=== PATIENT | male | born 2000 | race Caucasian/White ===

== ENCOUNTER 2021-12-18 04:35 | Day surgery (SDC) | payer OTHER ==
[2021-12-17 09:54] VITALS: BMI 20.9
[2021-12-18] MEDS ORDERED: MIDAZOLAM HCL 2 MG/2 ML SINGLE DOSE VIAL ONE ×2 (09:30)
[2021-12-18] MEDS ORDERED: PROPOFOL 20 ML ONE (09:30)
[2021-12-18] MEDS ORDERED: BACITRACIN 15 GM TUBE TOPICAL OINTMENT ONE (09:34)
[2021-12-18] MEDS ORDERED: DEXAMETHASONE SOD PHOSPHATE 4 MG/1 ML VIAL ONE (09:49)
[2021-12-18] MEDS ORDERED: ceFAZolin SODIUM 1 GM VIAL ONE (09:49)
[2021-12-18] MEDS ORDERED: ceFAZolin SODIUM 1 GM VIAL IVPB ONE (09:55)
[2021-12-18] MEDS ORDERED: BACITRACIN 15 GM TUBE TOPICAL OINTMENT TP ONE (10:31)
[2021-12-18] MEDS ORDERED: LIDOCAINE HCL 1%, 10 MG/ML (20ML VIAL) SQ ONE (10:53)
[2021-12-18] MEDS ORDERED: ONDANSETRON 4 MG/2 ML VIAL IVPUSH PRN (12:21)
[2021-12-18] MEDS ORDERED: oxyCODONE HCL 5 MG TABLET PO PRN (12:21)
[2021-12-18] MEDS ORDERED: LIDOCAINE HCL/PF 2% SDV 5ML VIAL ONE (12:28)
[2021-12-18] MEDS ORDERED: LACTATED RINGERS SOLUTION 1,000 ML IV SCH (12:30)
[2021-12-18 13:10] VITALS: BP 109/73; PULSE 79; TEMP 98.2
== END 2021-12-18 13:12 | disposition home or self-care (01) ==
LOC: JASU-SURG 04:35
PROVIDERS: ATTEND Urology
PROC: 0VTTXZZ Resection of Prepuce, External Approach (ICD-10-PCS; principal; 2021-12-18 08:30)
DX: N47.2 Paraphimosis (principal)
CPT/HCPCS: 88304-TC; 94760

== ENCOUNTER 2023-11-23 21:28 | Emergency (ER) | payer OTHER ==
[2023-11-23 21:47] VITALS: BP 138/94; PULSE 90; RESP 18; TEMP 98.2; BMI 20.3
[2023-11-23] MEDS ORDERED: TETANUS AND DIPHTHERIA TOXOID 0.5 ML DISP.SYRIN IM ONE (22:58)
[2023-11-23] MEDS ORDERED: DIPHTH,PERTUSS(ACELL),TET 0.5 ML DISP.SYRIN IM ONE (23:07)
[2023-11-23] MEDS: DIPHTH,PERTUSS(ACELL),TET 0.5 ML DISP.SYRIN IM ONE (23:10)
== END 2023-11-23 23:40 | disposition home or self-care (01) ==
LOC: JERFT 21:28
PROC: 3E0234Z Introduction of Serum, Toxoid and Vaccine into Muscle, Percutaneous Approach (ICD-10-PCS; principal; 2023-11-23)
DX: S61.210A Laceration without foreign body of right index finger without damage to nail, initial encounter (principal); W27.5XXA Contact with paper-cutter, initial encounter
CPT/HCPCS: 90471; 90715; 99285-25

== ENCOUNTER 2025-06-06 15:12 | Emergency (ER) | payer OTHER ==
[2025-06-06 15:33] VITALS: TEMP 98
[2025-06-06] MEDS ORDERED: DIPHTH,PERTUSS(ACELL),TET 0.5 ML DISP.SYRIN IM ONE (16:06)
[2025-06-06] MEDS: DIPHTH,PERTUSS(ACELL),TET 0.5 ML DISP.SYRIN IM ONE (16:10)
[2025-06-06] MEDS: LIDOCAINE 1%/EPI 1:100000 (20 ML MULTI DOSE VIAL) INF ONE (17:10)
[2025-06-06] MEDS: SODIUM CHLORIDE 1,000 ML IV STA (17:15)
[2025-06-06] MEDS ORDERED: LIDOCAINE 1%/EPI 1:100000 (20 ML MULTI DOSE VIAL) ONE (17:22)
[2025-06-06 17:55] VITALS: BMI 21.2
[2025-06-06] MEDS ORDERED: TRANEXAMIC ACID 1000 MG/10 ML VIAL ONE (18:06)
[2025-06-06] MEDS ORDERED: CEFAZOLIN 2 GM/D5W 2 GM/50 ML ML IVPB ONE ×3 (18:07→18:31)
[2025-06-06] MEDS ORDERED: LIDOCAINE HCL 2% (20ML MULTI-DOSE VIAL) ONE (18:11)
[2025-06-06] MEDS: CEFAZOLIN SODIUM 2 GM in DEXTROSE 5%-WATER 100 ML IVPB ONE (18:12)
[2025-06-06] MEDS: TRANEXAMIC ACID 1000 MG/10 ML VIAL NS ONE (18:30)
[2025-06-06 18:53] VITALS: BP 145/87; PULSE 98; RESP 20
== END 2025-06-06 18:53 | disposition home or self-care (01) ==
LOC: JER 15:12 → JERFT 15:12
PROC: 0HQGXZZ Repair Left Hand Skin, External Approach (ICD-10-PCS; principal; 2025-06-06)
PROC: 3E03329 Introduction of Other Anti-infective into Peripheral Vein, Percutaneous Approach (ICD-10-PCS; 2025-06-06)
PROC: 3E0234Z Introduction of Serum, Toxoid and Vaccine into Muscle, Percutaneous Approach (ICD-10-PCS; 2025-06-06)
PROC: 3E0337Z Introduction of Electrolytic and Water Balance Substance into Peripheral Vein, Percutaneous Approach (ICD-10-PCS; 2025-06-06)
DX: S61.412A Laceration without foreign body of left hand, initial encounter (principal); Z23 Encounter for immunization; W26.0XXA Contact with knife, initial encounter
CPT/HCPCS: 12002-25; 90471; 90715; 96361; 99284-25